=== PATIENT | female | born 1970 | race Caucasian/White ===

== ENCOUNTER 2017-01-26 10:10 | Emergency (ER) | payer BC, OTHER ==
--- NOTE | 2017-01-26 10:54 | EDPHY ---
H & P <Jessie Jorge - Last Filed: 01/27/17 10:42> Smoking Status: Never smoked <Lissa Juarez - Last Filed: 01/28/17 09:21> Time Seen by Provider: 01/26/17 10:23 HPI/ROS: CHIEF COMPLAINT: Left upper extremity weakness HISTORY OF PRESENT ILLNESS: 46-year-old female presents with left upper extremity weakness. 1 week ago she developed atraumatic bilateral neck discomfort. Over the next few days the discomfort became localized to the left side of her neck and suprascapular area. She saw a chiropractor 2 days ago and had chiropractic manipulation. The pain in her neck completely resolved. However, she developed left upper extremity weakness involving her shoulder a few hours after the manipulation. The weakness has persisted since then and occurs with shoulder abduction and flexion. She had a transient episode of left upper extremity numbness yesterday, which quickly resolved. She also has a history of hypertension and is currently taking Norvasc 10 mg twice a day. Despite this, her blood pressure has been running high recently. She previously took methyldopa with good control of her blood pressure. She has a follow-up appointment next week with her primary care physician for blood pressure management. REVIEW OF SYSTEMS: Constitutional: No fever, no chills Eyes: No visual changes ENT: No sore throat Respiratory: No cough, no shortness of breath Cardiac: No chest pain Gastrointestinal: No nausea, no vomiting, no abdominal pain Genitourinary: no dysuria Musculoskeletal: No leg pain or swelling Skin: No rash Neurological: No headache Psychiatric: feels anxious (Lissa Juarez) Past Medical/Surgical History: Hypertension (Lissa Juarez) Social History: Retail Project Merchandiser (Lissa Juarez) Physical Exam: General Appearance: Alert, pleasant Eyes: Pupils equal and round, no conjunctival pallor or injection ENT, Mouth: Mucous membranes moist Neck: Normal inspection, no midline tenderness, no pain with range of motion Respiratory: Lungs are clear to auscultation Cardiovascular: Regular rate and rhythm Gastrointestinal: Abdomen is soft and nontender Neurological: A&O, motor 4+ over 5 with shoulder abduction and flexion, elbow/ wrist and fingers 5/5, sensory intact to light touch Skin: Warm and dry, no rash Extremities: no swelling or tenderness Vascular: 2+ radial pulse Psychiatric: Mood and affect normal (Lissa Juarez) Constitutional: Initial Vital Signs Temperature (C) 36.8 C 01/26/17 10:14 Heart Rate 86 01/26/17 10:14 Respiratory Rate 16 01/26/17 10:14 Blood Pressure 198/139 H 01/26/17 10:14 O2 Sat (%) 96 01/26/17 10:14 O2 Delivery Mode Room Air Allergies/Adverse Reactions: codeine [Codeine] Allergy (Mild, Verified 01/26/17 10:14) Other-Enter Comments amoxicillin trihydrate [From Augmentin] Allergy (Verified 01/26/17 10:14) potassium clavulanate [From Augmentin] Allergy (Verified 01/26/17 10:14) Home Medications: Medication Instructions Recorded Amlodipine Besylate 06/05/14 Hydrocodone/APAP 5/325 [[place] 1 tab PO Q4 PRN #15 tab 06/05/14 5/325 (RX)] Benazepril HCl [Lotensin (*)] 10 mg PO DAILY #30 tab 01/26/17 methylPREDNISolone [Medrol Dose 1 each PO AD #1 ea 01/26/17 [place]] Medical Decision Making - Diagnostics Imaging: Discussed imaging studies w/ will call order clerk Radiologist <Jessie Jorge - Last Filed: 01/27/17 10:42> <Lissa Juarez - Last Filed: 01/28/17 09:21> - Diagnostics Imaging Results: Cervical spine MRI and neck MRA as above. I discussed the results of the studies with staff radiologist Dr. Navjot Arcos. (Jessie Jorge) ED Course/Re-evaluation: I took over care of this patient at 3:00 p.m.. We are awaiting the results of a MRI of the cervical spine an MRA of the neck. The MRA of the neck was ordered out of concern about a possible left vertebral artery dissection versus artifact seen on her CT angiogram. 5:30 p.m., patient re-evaluated. Results of MRA of neck and MRI of cervical spine discussed with her. Repeat neurologic Assessment is unchanged from that of Dr. Tatiana Juarez noted above. The patient does feel comfortable going home. She will be discharged with a Medrol Dosepak. She is to follow up with Dr. Carlos of the neurosurgical Spine Service. She will call his office tomorrow for appointment time. Return to emergency department precautions were reviewed with her. All of her questions were answered. The patient was discharged in good condition. (Jessie Jorge) This patient presents with left upper extremity weakness after chiropractic manipulation. Concerning for arterial dissection. CT angiogram of the neck ordered. If this test is normal, I will consider MRI of the cervical spine for evaluation for disc herniation. Given the onset of symptoms, and limited distribution of left upper extremity weakness, I do not suspect CVA in this patient, though this was carefully considered, especially in light of her hypertension. Blood pressure is quite elevated and the patient is quite anxious. I will give her Ativan 0.5 mg IV and see if her blood pressure comes down after anxiolytics. If not, I will provide further blood pressure management. Blood pressure has subsided after Ativan. I do not feel that further blood pressure medication is indicated at this point. CT results discussed with Dr. Conner. There is a possible vertebral artery dissection at the level of C2. She also has severe neural foraminal stenosis at multiple levels including C4 and C5. This is the most likely etiology for her symptoms. I do not think that a vertebral artery dissection would cause her symptoms. However we need to figure out if this is a real finding or not. For this reason, an MR angiogram of the neck was ordered. I consulted Dr. Carlos for the shoulder weakness and neuroforaminal stenosis. I will place the patient on a Medrol Dosepak and she will follow up in the office. Hopefully her symptoms will resolve after steroids. If she worsens, she will call the neurosurgical office or return to the emergency department. BP continues to run high. I had a prolonged conversation with the pt. We decided to add Benzapril to her medication regimen. She will take Norvasc 10mg daily and Benzapril daily. Benzapril given in the ED. She will monitor her BPO over the weekend. If it continues to run high at home, she will call her PCP or return to the ED. This patient was signed over at shift change to Dr. Jorge. The plan is to discharge the patient home if she does not have a vertebral artery dissection and no evidence of an acute surgical cervical spine problem. She will follow up with Neurosurgery in the office. I wrote a prescription for a Medrol Dosepak. (Lissa Juarez) Differential Diagnosis: Differential diagnosis includes though is not limited to carotid dissection, CVA , TIA, brachial plexus injury, fracture. (Lissa Juarez) - Data Points Medications Given: Discontinued Medications Benazepril HCl (Lotensin) 10 mg PO EDNOW ONE Stop: 01/26/17 15:11 Last Admin: 01/26/17 15:35 Dose: 10 mg Lorazepam (Ativan Injection) 0.5 mg IVP EDNOW ONE Stop: 01/26/17 11:42 Last Admin: 01/26/17 11:46 Dose: 0.5 mg Departure <Jessie Jorge - Last Filed: 01/27/17 10:42> <Lissa Juarez - Last Filed: 01/28/17 09:21> - Departure Disposition: Home, Routine, Self-Care Clinical Impression: Shoulder weakness, Neuroforaminal stenosis of cervical spine Condition: Good Instructions: Cervical Radiculopathy (ED) Additional Instructions: Return for worsening symptoms, including worsening weakness or numbness. Take Norvasc 10 mg daily. This is the maximum dose of Norvasc. Add Benazepril to your blood pressure regimen. Follow-up with Dr. Carlos of the neuro Surgical Spine service as discussed. Call his office tomorrow morning for appointment time. Referrals: Annette Red [Primary Care Provider] - As per Instructions Raul Carlos MD [Medical Doctor] - As per Instructions (Call to make an appointment with Dr. Carlos.) Prescriptions: Benazepril HCl [Lotensin (*)] 10 mg PO DAILY #30 tab methylPREDNISolone [Medrol Dose [place]] 1 each PO AD #1 ea
[2017-01-26] MEDS ORDERED: IOPAMIDOL (ISOVUE 370) 100 ML BTL IV ONE ×2 (11:04)
[2017-01-26] MEDS ORDERED: LORazepam 2 MG/ML INJ IVP ONE ×2 (11:41)
[2017-01-26] MEDS ORDERED: BENAZEPRIL HCL 10 MG TAB PO ONE ×2 (15:10)
[2017-01-26 16:05] VITALS: RESP 20
[2017-01-26] MEDS ORDERED: GADOBUTROL 10 ML VIAL IVP ONE ×2 (16:31)
[2017-01-26 18:02] VITALS: BP 192/116; PULSE 93; TEMP 98.6; O2SAT 95
== END 2017-01-26 18:02 | disposition home or self-care (01) ==
DX: M48.02 Spinal stenosis, cervical region (principal)
CPT/HCPCS: 82947-QW; 96374; A9585; J2060; Q9967

== ENCOUNTER → 2017-04-20 | Outpatient (CLI) | payer OTHER | LOC: FIMAGING 09:06 | PROVIDERS: ATTEND Family Medicine | DX: Z12.31 Encounter for screening mammogram for malignant neoplasm of breast (principal); Z80.3 Family history of malignant neoplasm of breast ==